=== PATIENT | male | born 1980 | race Caucasian/White ===

== ENCOUNTER 2021-07-08 08:59 | Inpatient (IN) | payer BC ==
[~2021-07-08] VITALS: Ht 175.3 cm; Wt 99.1 kg
[~2021-07-08 08:59] MED LIST: CLINDAMYCIN HC300 MG PO; LEVAQUIN 5500 MG/TAB PO; NO HOME MEDICATIONS
[2021-07-08 09:49] LABS: BASO % 0.2 % (0.0-2.0); GRAN # 5.5 K/mm3 (1.4-6.5); GRAN % 84.1 % (42.2-75.2); HEMOGLOBIN 15.7 g/dl (13.5-18.0); LYMPH # 0.4 K/mm3 (1.2-3.4); LYMPH % 6.6 % (20.0-51.0); MEAN CELL VOLUME 87 fl (80.0-100.0); MEAN CORPUSCULAR HEMOGLOBIN 30 pg (27.0-31.0); MEAN CORPUSCULAR HGB CONC 35 g/dl (33.0-37.0); MONO # 0.6 K/mm3 (0.1-0.6); MONO % 8.6 % (1.7-9.3); PLATELET COUNT 160 K/mm3 (130-400)
[2021-07-08 10:11] LABS: ALANINE AMINOTRANSFERASE 41 U/L (0-55); ALBUMIN 3.7 gm/dL (3.5-5.0); ALKALINE PHOSPHATASE 28 U/L (40-150); ANION GAP 14 mmol/L (7-16); AST,SGOT 51 U/L (5-34); BILIRUBIN,TOTAL 0.6 mg/dL (0.2-1.2); BLOOD UREA NITROGEN 13 mg/dL (9-21); C-REACTIVE PROTEIN 6.78 mg/dL (0.00-0.50); CALCIUM 8.9 mg/dL (8.4-10.2); CARBON DIOXIDE 24 mmol/L (22-29); CHLORIDE 97 mmol/L (98-107); GLUCOSE 118 mg/dL (70-99); LIPASE 39 U/L (8-78); POTASSIUM 3.8 mmol/L (3.5-4.5); SODIUM 135 mmol/L (136-145); TOTAL PROTEIN 7.6 gm/dL (6.2-8.1)
[2021-07-08 10:18] LABS: TROPONIN-I < 0.010 ng/mL (0.00-0.033)
[2021-07-08 14:24] VITALS: BP 134/78; PULSE 106; TEMP 100.9
[2021-07-08 16:15] VITALS: BP 130/75; PULSE 95; TEMP 100.9
[2021-07-08 21:04] VITALS: BP 129/75; PULSE 83; TEMP 97.8
[2021-07-08 23:39] VITALS: BP 116/67; PULSE 77; TEMP 98
[2021-07-09 03:21] VITALS: BP 117/76; PULSE 76; TEMP 97.5
--- NOTE | 2021-07-09 05:44 | NUR ---
PT 02 NEEDS REMAINED THE SAME OVERNIGHT. 02 2LNC, N/S INFUSING AT 75CC/HR TO LAC. PT C/O THROAT BURNING AND BACK PAIN WITH SPASMS. PT PROVIDED MEDICATION. PT REPORTS ALLEVIATION WITH BACK. PT PROVIDED WARM WATER WITH SALT TO GARGLE. ALL NEEDS MET THIS NIGHT. CALL LIGHT WITHIN REACH.
[2021-07-09 07:45] LABS: BASO % 0.1 % (0.0-2.0); GRAN # 6.5 K/mm3 (1.4-6.5); GRAN % 80.7 % (42.2-75.2); HEMATOCRIT 42.2 % (42.0-52.0); HEMOGLOBIN 13.8 g/dl (13.5-18.0); LYMPH # 0.8 K/mm3 (1.2-3.4); LYMPH % 10.2 % (20.0-51.0); MEAN CORPUSCULAR HEMOGLOBIN 30 pg (27.0-31.0); MEAN CORPUSCULAR HGB CONC 33 g/dl (33.0-37.0); MEAN PLATELET VOLUME 10.1 fl (7.4-10.4); MONO # 0.7 K/mm3 (0.1-0.6); MONO % 8.4 % (1.7-9.3); PLATELET COUNT 173 K/mm3 (130-400); REDCELL DISTRIBUTION WIDTH-CV 12.4 % (11.5-14.5)
[2021-07-09 07:47] LABS: MEAN CELL VOLUME 92 fl (80.0-100.0)
[2021-07-09 08:02] LABS: CALCIUM 7.7 mg/dL (8.4-10.2); CREATININE, serum 0.9 mg/dL (0.72-1.25); POTASSIUM 3.8 mmol/L (3.5-4.5)
[2021-07-09 08:29] VITALS: BP 101/50; PULSE 84; TEMP 98.2
[2021-07-09 10:56] VITALS: BP 115/60; PULSE 90; TEMP 98.2
--- NOTE | 2021-07-09 13:08 | NUR ---
Sustainability Specialist contacted patient by room phone as he is in isolation for COVID 19. Patient lives in [place] with his , Ivy (ph#[phone]) and sees Dr. Henao for primary care. [facility] with [facility] difficulties. Patient does not normally use any DME but is currently requiring 10 liters of oxygen. SW will continue to monitor. Patient is independent with ADLS and plans to return home upon discharge. Patient states he has completed DPOA-HC with Roberto Reddy, assistant prosecuting attorney in [place] and his Ivy is designated as DPOA-HC. Discharge Plan: Home
[2021-07-09 15:37] VITALS: BP 126/56; PULSE 88; TEMP 99.2
--- NOTE | 2021-07-09 19:26 | NUR ---
Pt O2 needs increased this shift to 12 L oxymask. Pt prefers oxymask over high flow NC. Pt with poor PO intake this shift d/t nausea, IV zofran administered. Pt tolerating clears. ID and pulm consulted this shift, Remdesivir started. Pt anxious at times, prn ativan ordered if needed.
[2021-07-09 20:00] VITALS: BP 125/79; PULSE 97; TEMP 99.5
--- NOTE | 2021-07-09 21:57 | NUR ---
PT 02 NEEDS INCREASED DRASTICALLY THIS SHIFT THUS FAR, PT WENT FROM 12L HIGH FLOW TO AIRVO 60L FIO2 OF 91 WITH SATURATIONS UNDER 90 PERCENT. PT PLACED ON BIPAP 30/05 FI02 OF 85 PERCENT PT CURRENTLY SATURATING 96 PERCENT. PT PROVIDED ATIVAN FOR ANXIETY AND TYLENOL FOR LOW GRADE FEVER. THIS NURSE AND RT WILL CONTINUE TO CONDUCT HOURLY ROUNDS ON PT.
[2021-07-09 23:26] LABS: ARTERIAL BLD GAS O2 SATURATION 97.7 % (92-100); ARTERIAL BLD GAS TCO2 CT 24.2; ARTERIAL BLOOD GAS BASE EXCESS 0.5 (-2-2); ARTERIAL BLOOD GAS HCO3 23.2 meq/L (22-26); ARTERIAL BLOOD GAS PO2 100.1 mmHg (80-100); ARTERIAL BLOOD GAS pH 7.48 (7.35-7.45)
[2021-07-10] VITALS (7 sets, daily range): BP systolic 101–138; BP diastolic 64–84; PULSE 80–99; TEMP 98.2–99.4
--- NOTE | 2021-07-10 05:18 | NUR ---
PT WORE BIPAP ALL NIGHT. 02 SATURATIONS OVER 95 PERCENT. PT DENIES N,V. PT CONTINUES HAS HAD NO LOOSE STOOLS THIS SHIFT. ABX ADMINISTERED ORDERED. PT EXPRESSES NO ADDITONAL NEEDS AT THIS TIME. CALL LIGHT WITHIN REACH.
[2021-07-10 07:13] LABS: BASO % 0.1 % (0.0-2.0); GRAN # 8.1 K/mm3 (1.4-6.5); GRAN % 82.5 % (42.2-75.2); HEMATOCRIT 41.6 % (42.0-52.0); HEMOGLOBIN 14.1 g/dl (13.5-18.0); LYMPH # 0.8 K/mm3 (1.2-3.4); LYMPH % 8.4 % (20.0-51.0); MEAN CELL VOLUME 88 fl (80.0-100.0); MEAN CORPUSCULAR HEMOGLOBIN 30 pg (27.0-31.0); MEAN CORPUSCULAR HGB CONC 34 g/dl (33.0-37.0); MONO # 0.8 K/mm3 (0.1-0.6); MONO % 7.8 % (1.7-9.3); PLATELET COUNT 223 K/mm3 (130-400); RED BLOOD COUNT 4.72 M/mm3 (4.20-5.60); REDCELL DISTRIBUTION WIDTH-CV 12.4 % (11.5-14.5)
[2021-07-10 07:33] LABS: ALBUMIN 2.9 gm/dL (3.5-5.0); BILIRUBIN,TOTAL 0.5 mg/dL (0.2-1.2); C-REACTIVE PROTEIN 5.1 mg/dL (0.00-0.50); CALCIUM 8.6 mg/dL (8.4-10.2); CREATININE, serum 0.79 mg/dL (0.72-1.25); POTASSIUM 3.6 mmol/L (3.5-4.5); TOTAL PROTEIN 6.4 gm/dL (6.2-8.1)
[2021-07-11] VITALS (7 sets, daily range): BP systolic 100–129; BP diastolic 52–82; PULSE 70–84; TEMP 97.5–98.9
--- NOTE | 2021-07-11 05:48 | NUR ---
pt currently on airvo @60L 93%, while asleep he was on AVAPS- VT 450, FiO2 100%, epap 6, rate 18, pt asked for ativan x2 this shift for sleep. IVF infusing per PIV @50cc/hr, no c/o pain this shift.
[2021-07-11 07:18] LABS: HEMATOCRIT 39.7 % (42.0-52.0); HEMOGLOBIN 13.6 g/dl (13.5-18.0); MEAN CELL VOLUME 87 fl (80.0-100.0); MEAN CORPUSCULAR HEMOGLOBIN 30 pg (27.0-31.0); MEAN CORPUSCULAR HGB CONC 34 g/dl (33.0-37.0); PLATELET COUNT 239 K/mm3 (130-400); RED BLOOD COUNT 4.58 M/mm3 (4.20-5.60); REDCELL DISTRIBUTION WIDTH-CV 12.3 % (11.5-14.5)
[2021-07-11 07:37] LABS: ALBUMIN 2.7 gm/dL (3.5-5.0); BILIRUBIN,TOTAL 0.5 mg/dL (0.2-1.2); C-REACTIVE PROTEIN 3.76 mg/dL (0.00-0.50); CALCIUM 8.6 mg/dL (8.4-10.2); CREATININE, serum 0.71 mg/dL (0.72-1.25); POTASSIUM 3.9 mmol/L (3.5-4.5); TOTAL PROTEIN 5.9 gm/dL (6.2-8.1)
[2021-07-11 08:38] LABS: BAND 2 % (0-10); LYMPHOCYTE 14 % (20.0-51.0); METAMYELOCYTE 1 % (0-0); NEUTROPHILS 78 % (42.0-75.2); PLATELET ESTIMATE NORMAL (NORMAL)
--- NOTE | 2021-07-11 18:49 | NUR ---
PT ON BIPAP AND AIRVO 60 L INTERMITTENTLY THIS SHIFT. PT MORE WILLING TO EAT. NAUSEA THIS MORNING. ATIVAN FOR ANXIETY. VSS. NO FEVERS. PT USES CALL LIGHT APPROPRIATELY. IV FLUIDS CONT AT 50 ML/HR. CHEST XRAY IN THE AM.
[2021-07-12 01:00] VITALS: BP 128/73; PULSE 78; TEMP 97.6
[2021-07-12 04:11] VITALS: BP 129/79; PULSE 69; TEMP 97.6
--- NOTE | 2021-07-12 04:58 | NUR ---
AT 0445 PT C/O OF NAUSEA AND PAIN. MEDICATION ADMINISTERED ORDERED. THIS NURSE WILL F/U
--- NOTE | 2021-07-12 05:30 | NUR ---
PT WORE BIPAP MAJORITY OF THE NIGHT WITH 02 SATURATIONS OVER 95 PERCENT. PT PLACED BACK ON AIRVO AT 0430 60L FIO1 88 WITH 02 SATURATIONS 89-91%.N/S INFUSING AT 50CC/HR TO RH IV. ALL NEEDS MET THIS NIGHT. PT EXPRESSES NO ADDITIONAL NEEDS AT THIS TIME. CALL LIGHT WITHIN REACH.
[2021-07-12 06:52] LABS: HEMATOCRIT 42.6 % (42.0-52.0); HEMOGLOBIN 14.2 g/dl (13.5-18.0); MEAN CELL VOLUME 89 fl (80.0-100.0); MEAN CORPUSCULAR HEMOGLOBIN 30 pg (27.0-31.0); MEAN CORPUSCULAR HGB CONC 33 g/dl (33.0-37.0); MEAN PLATELET VOLUME 10.3 fl (7.4-10.4); PLATELET COUNT 285 K/mm3 (130-400); RED BLOOD COUNT 4.77 M/mm3 (4.20-5.60)
[2021-07-12 07:48] LABS: ALBUMIN 2.9 gm/dL (3.5-5.0); CALCIUM 8.9 mg/dL (8.4-10.2); CREATININE, serum 0.77 mg/dL (0.72-1.25); POTASSIUM 3.8 mmol/L (3.5-4.5)
[2021-07-12 08:05] LABS: MAGNESIUM 2.1 mg/dL (1.6-2.6)
[2021-07-12 08:06] LABS: C-REACTIVE PROTEIN 1.85 mg/dL (0.00-0.50)
[2021-07-12 08:42] VITALS: BP 125/70; PULSE 73; TEMP 98.4
[2021-07-12 08:49] LABS: BAND 2 % (0-10); LYMPHOCYTE 13 % (20.0-51.0); NEUTROPHILS 75 % (42.0-75.2)
[2021-07-12 08:50] LABS: PLATELET ESTIMATE NORMAL (NORMAL)
--- NOTE | 2021-07-12 10:52 | NUR ---
PT RESTING IN BED. MORNING MEDICATIONS GIVEN. SHIFT ASSESSMENT COMPLETED. DENIES ANY N/V/D. REPORTS A DRY, SCRATCHY THROAT DUE TO THE BIPAP. IS CURRENTLY ON AIRVO 60L/80%. DENIES ANY PAIN, IV SITE IS BOTHERING HIM. NOT MUCH OF AN APPETITE THIS MORNING. WILL CONTINUE TO MONITOR.
[2021-07-12 12:48] VITALS: BP 123/83; PULSE 76; TEMP 98.4
[2021-07-12 16:56] VITALS: BP 116/68; PULSE 66; TEMP 98.5
[2021-07-12 19:16] VITALS: BP 128/78; PULSE 62; TEMP 97.8
[2021-07-13 00:36] VITALS: BP 105/62; PULSE 57; TEMP 98.1
[2021-07-13 04:51] VITALS: BP 122/56; PULSE 86; TEMP 97.9
--- NOTE | 2021-07-13 04:56 | NUR ---
PT WORE BIPAP FOR THE MAJORITY OF THE NIGHT. 02 SATURATIONS OVER 94 PERCENT. PT CONTINUES TO C/O OF FEELING WEAK AND "JUST NOT RIGHT". PT C/O SORE THROAT AND SCANT BLEEDING FROM COUGH. MEDICATION AND ADMINISTERED ORDERED. PT DENIES PAIN,N,V AND CONTINUES TO HAVE LOOSE STOOLS, 1 PER DAY. N/S INFUSING AT 50CC\\HR TO LFA IV. ALL NEEDS MET THIS NIGHT.PT EXPRESSES NO ADDITIONAL NEEDS AT THIS TIME. CALL LIGHT WITHIN REACH.
[2021-07-13 06:45] LABS: HEMATOCRIT 42.2 % (42.0-52.0); HEMOGLOBIN 14.6 g/dl (13.5-18.0); MEAN CELL VOLUME 86 fl (80.0-100.0); MEAN CORPUSCULAR HEMOGLOBIN 30 pg (27.0-31.0); MEAN CORPUSCULAR HGB CONC 35 g/dl (33.0-37.0); MEAN PLATELET VOLUME 9.8 fl (7.4-10.4); PLATELET COUNT 313 K/mm3 (130-400); REDCELL DISTRIBUTION WIDTH-CV 11.9 % (11.5-14.5)
[2021-07-13 07:06] LABS: ALBUMIN 2.9 gm/dL (3.5-5.0); CALCIUM 8.3 mg/dL (8.4-10.2); CREATININE, serum 0.83 mg/dL (0.72-1.25); MAGNESIUM 2.1 mg/dL (1.6-2.6); PHOSPHOROUS 3.7 mg/dL (2.3-4.7); POTASSIUM 4.1 mmol/L (3.5-4.5)
[2021-07-13 07:50] LABS: BAND 1 % (0-10); EOSINOPHIL 1 % (0-4); LYMPHOCYTE 14 % (20.0-51.0); NEUTROPHILS 72 % (42.0-75.2)
[2021-07-13 07:51] LABS: PLATELET ESTIMATE NORMAL (NORMAL)
[2021-07-13 12:21] VITALS: BP 123/63; PULSE 87; TEMP 97.6
--- NOTE | 2021-07-13 13:15 | NUR ---
PT RESTING IN BED. MEDICATIONS GIVEN PER MAR. SHIFT ASSESSMENT COMPLETED. DENIES ANY PAIN OR NEEDS AT THIS TIME. PT REPORTS ONE EPISODE OF DIARRHEA THIS MORNING. WILL CONTINUE TO MONITOR.
[2021-07-13 16:06] VITALS: BP 120/76; PULSE 73; TEMP 97.9
--- NOTE | 2021-07-13 17:54 | NUR ---
PT REPORTS A FORMED BOWEL MOVEMENT THIS AFTERNOON.
[2021-07-13 20:00] VITALS: BP 121/74; PULSE 66; TEMP 97.4
--- NOTE | 2021-07-13 21:57 | NUR ---
PT IN ROOM A/OX4, VSS, AIRVO 60L FIO2 85% 02 SATURATIONS 92 PERCENT. PT PROVIDED NEW BATTERY FOR ROOM PHONE, PT PROVIDED WARM WATER AND SALT FOR THROAT IRRITATION, MEDICATION ADMINISTERED ORDERED FOR ANXIETY. PT REPORTS BACK PAIN 3/10 AN ACHING PAIN, TOLERABLE WITH HEAT. PT ROOM CLEANED UP BY THIS NURSE. POC DISCUSSED WITH PT. ALL QUESTIONS/CONCERNS ANSWERED. NURSE WILL CONTINUE TO MONITOR.
[2021-07-14 00:45] VITALS: BP 104/60; PULSE 61; TEMP 97.8
[2021-07-14 04:40] VITALS: BP 114/80; PULSE 72; TEMP 97.5
--- NOTE | 2021-07-14 05:32 | NUR ---
PT HAD UNEVENTFUL NIGHT THIS SHIFT, WORE BIPAP ALL NIGHT AND SATURATING FROM 94-97 PERCENT, CHANGED TO AIRVO THIS MORNING AT 0500 60L FI02 89 WITH SATURATIONS 91-92 PERCENT. N/S CONTINUES TO INFUSE AT 50 CC/HR TO LFA IV. PT EXPRESSES NO ADDIAIONAL NEEDS AT THIS TIME. CALL LIGHT WITHIN REACH.
[2021-07-14 06:44] LABS: HEMATOCRIT 42.2 % (42.0-52.0); HEMOGLOBIN 14.6 g/dl (13.5-18.0); MEAN CELL VOLUME 87 fl (80.0-100.0); MEAN CORPUSCULAR HEMOGLOBIN 30 pg (27.0-31.0); MEAN CORPUSCULAR HGB CONC 35 g/dl (33.0-37.0); MEAN PLATELET VOLUME 9.6 fl (7.4-10.4); PLATELET COUNT 324 K/mm3 (130-400); RED BLOOD COUNT 4.88 M/mm3 (4.20-5.60)
[2021-07-14 07:07] LABS: CALCIUM 8.2 mg/dL (8.4-10.2); CREATININE, serum 0.86 mg/dL (0.72-1.25); MAGNESIUM 1.8 mg/dL (1.6-2.6); PHOSPHOROUS 3.4 mg/dL (2.3-4.7); POTASSIUM 3.8 mmol/L (3.5-4.5)
[2021-07-14 08:15] LABS: BAND 3 % (0-10); EOSINOPHIL 2 % (0-4); LYMPHOCYTE 16 % (20.0-51.0); METAMYELOCYTE 1 % (0-0); NEUTROPHILS 73 % (42.0-75.2)
[2021-07-14 08:21] LABS: PLATELET ESTIMATE NORMAL (NORMAL)
[2021-07-14 08:26] VITALS: BP 123/66; PULSE 66; TEMP 98
--- NOTE | 2021-07-14 09:25 | NUR ---
PT RESTING IN BED. MORNING MEDICATIONS GIVEN. SHIFT ASSESSMENT COMPLETED. PT REPORTS BACK PAIN, PRN MEDICATIONS ADMINISTERED. IS REQUESTING TO TAKE A SHOWER THIS MORNING. REPORTS BEING BORED AND IS WANTING TO GO HOME. WILL CONTINUE TO MONITOR.
--- NOTE | 2021-07-14 10:20 | NUR ---
The patient remains on aivo at 50 liters. SW met with the patient to follow up. The patient states that he is doing alright. He states that he is ready to get out of here. The patient has no concerns about returning home with his upon discharge. SW to continue to monitor. *Discharge plan: home with *
[2021-07-14 11:40] VITALS: BP 120/68; PULSE 91; TEMP 98.2
[2021-07-14 16:21] VITALS: BP 116/68; PULSE 76; TEMP 98.2
[2021-07-14 20:00] VITALS: BP 114/66; PULSE 81; TEMP 98
[2021-07-15] VITALS (7 sets, daily range): BP systolic 90–118; BP diastolic 45–71; PULSE 63–100; TEMP 97.4–97.9
--- NOTE | 2021-07-15 05:55 | NUR ---
AT THIS TIME PT 02 WEANED FROM 8L TO 6.5 L WITH 02 SATURATION AT 93 PERCENT. PT INSTRUCTED OF WEANING PROCESS AND TO THROUGHOUT DAY GRADUALLY INCREASE ACTIVITY. PT VERBALIZES UNDERSTANDING. CALL LIGHT WITHIN REACH.
[2021-07-15 06:47] LABS: HEMATOCRIT 45.2 % (42.0-52.0); HEMOGLOBIN 15.1 g/dl (13.5-18.0); MEAN CELL VOLUME 90 fl (80.0-100.0); MEAN CORPUSCULAR HEMOGLOBIN 30 pg (27.0-31.0); MEAN CORPUSCULAR HGB CONC 33 g/dl (33.0-37.0); MEAN PLATELET VOLUME 9.9 fl (7.4-10.4); PLATELET COUNT 361 K/mm3 (130-400); RED BLOOD COUNT 5.04 M/mm3 (4.20-5.60); REDCELL DISTRIBUTION WIDTH-CV 12.1 % (11.5-14.5)
[2021-07-15 07:17] LABS: ALBUMIN 3.1 gm/dL (3.5-5.0); CALCIUM 8.8 mg/dL (8.4-10.2); CREATININE, serum 0.93 mg/dL (0.72-1.25)
[2021-07-15 07:52] LABS: BAND 2 % (0-10); EOSINOPHIL 3 % (0-4); LYMPHOCYTE 20 % (20.0-51.0); NEUTROPHILS 71 % (42.0-75.2); PLATELET ESTIMATE NORMAL (NORMAL)
--- NOTE | 2021-07-15 09:30 | NUR ---
PT PLEASANT, AOX4, PT DENIES PAIN, DENIES N/V/D, PT ASSESSMENT PERFORMED, MEDICATIONS GIVEN, VITALS REVIEWED, PT ON 6L NC
--- NOTE | 2021-07-15 11:54 | NUR ---
PT REPORTS FEELING DIZZY, VITALS CHECKED AND DOCUMENTED, PT 83% ON RA, PT THEN PLACED ON 2L NC, AFTER 5MIN PT STILL SATTING 87%. PT TITRATED TO 3L AND SATTING 90%. RT NOTIFIED
--- NOTE | 2021-07-15 13:18 | NUR ---
The patient is down to 3 liters of oxygen. SW to continue to monitor.
--- NOTE | 2021-07-15 18:34 | NUR ---
PT PLEASANT, AOX4, REQUESTED TUMS, TUMS BROUGHT IN, NO OTHER NEEDS
[2021-07-16 01:53] VITALS: BP 109/65; PULSE 82; TEMP 97.8
[2021-07-16 05:15] VITALS: BP 100/62; PULSE 68; TEMP 97.8
--- NOTE | 2021-07-16 05:24 | NUR ---
Resting quietly, no c/o at this time, uneventful night, tolerating O2@3L per NC, updated on plan of care.
[2021-07-16 07:13] LABS: HEMATOCRIT 46.1 % (42.0-52.0); HEMOGLOBIN 15.7 g/dl (13.5-18.0); MEAN CELL VOLUME 88 fl (80.0-100.0); MEAN CORPUSCULAR HEMOGLOBIN 30 pg (27.0-31.0); MEAN CORPUSCULAR HGB CONC 34 g/dl (33.0-37.0); MEAN PLATELET VOLUME 9.7 fl (7.4-10.4); PLATELET COUNT 435 K/mm3 (130-400); RED BLOOD COUNT 5.22 M/mm3 (4.20-5.60); REDCELL DISTRIBUTION WIDTH-CV 12.1 % (11.5-14.5)
[2021-07-16 07:30] LABS: CALCIUM 9.2 mg/dL (8.4-10.2); PHOSPHOROUS 4.8 mg/dL (2.3-4.7)
[2021-07-16 08:07] LABS: BAND 2 % (0-10); EOSINOPHIL 2 % (0-4); LYMPHOCYTE 7 % (20.0-51.0); METAMYELOCYTE 2 % (0-0); NEUTROPHILS 74 % (42.0-75.2); PLATELET ESTIMATE NORMAL (NORMAL)
[2021-07-16 08:27] LABS: ALBUMIN 3.3 gm/dL (3.5-5.0); CREATININE, serum 1.04 mg/dL (0.72-1.25); MAGNESIUM 1.9 mg/dL (1.6-2.6)
[2021-07-16 08:36] VITALS: BP 120/77; PULSE 80; TEMP 97.8
--- NOTE | 2021-07-16 09:00 | NUR ---
PT PLEASANT, AOX4, DENIES PAIN, DENIES N/V/D, EAGER FOR DISCHARGE, PLACED ORDER FOR EXERCISE OXIMETRY AND RT NOTIFIED. ASSESSMENT PERFORMED, PT IV WRAPPED FOR A SHOWER, NOTIFIED TELEMETRY, BREAKFAST BROUGHT IN FOR PT.
--- NOTE | 2021-07-16 10:11 | NUR ---
An exercise oximetry was ordered. RT notified SW that the patient qualified for 4 liters. SW contacted the patient to update. The patient reports that his aunt works at [employer] in [place] and he would like to get the oxygen from there. He reports that his will picker packer the oxygen from them, before heading this way to pick him up. ROBEL contacted and faxed the oxygen order to Sujey at [employer]. Sujey reports that she will contact the patient's , once the order is ready. The patient is to discharge back home with his today, 07/16. No additional needs at this time.
[2021-07-16 11:53] VITALS: BP 119/70; PULSE 82; TEMP 98.1
--- NOTE | 2021-07-16 12:49 | NUR ---
PT EAGER FOR DISCHARGE, EXPLAINED PHYSICIAN WAS BUSY SEEING PTS, PT SEEMED UNDERSTANDING OF SITUATION BUT STILL WANTING TO LEAVE, PT BRINGING HIM CHICK-SHAHLA-A FOR LUNCH. NO OTHER NEEDS
[2021-07-16] MEDS ORDERED: PROAIR HFA0.09 MG/AC IH (14:15)
--- NOTE | 2021-07-16 15:11 | NUR ---
PT DISCHARGE EDUCATION PROVIDED, PT HAD NO QUESTIONS AT THIS TIME, IV REMOVED FROM LAC, PT BELONGINGS PACKED AND TAKEN WITH PT IN WHEELCHAIR, NO OTHER NEEDS AT THIS TIME.
== END 2021-07-16 15:11 | disposition home or self-care (01) | DRG 177 ==
LOC: COL.ER 08:59 → MEDICAL 10:47
PROVIDERS: Emergency Medicine; Internal Medicine Sleep Medicine; Physician Assistant; ADMIT Internal Medicine
PROC: XW033E5 Introduction of Remdesivir Anti-infective into Peripheral Vein, Percutaneous Approach, New Technology Group 5 (ICD-10-PCS; principal; 2021-07-08)
DX: U07.1 COVID-19 (principal); J12.82 Pneumonia due to coronavirus disease 2019; J96.01 Acute respiratory failure with hypoxia
CPT/HCPCS: 99223-AI; 99232-AI; 99233-AI; 99239; A9284; J0456; J0696; J1100; J1650; J2060; J2405; J2550; J3010; J7030; J7050; J8540; Q0249